=== PATIENT | male | born 1995 | race Caucasian/White ===

== ENCOUNTER 2017-07-21 07:52 | Outpatient (CLI) | payer OTHER ==
--- NOTE | 2017-07-21 10:06 | CT ---
CT ABDOMEN AND PELVIS WITH ORAL AND IV CONTRAST: Date: 07/21/17 HISTORY: Epigastric pain, nausea, and constipation. FINDINGS: The lung bases are clear. The liver, spleen, pancreas, adrenal glands, and kidneys are normal. No emmett cified gallstones are seen. No free air, free fluid, or lymphadenopathy identified in the abdomen or pelvis. The small bowel loops are not abnormally dilated. A normal appearing appendix is present. There is a large amount of fecal material in the colon and rectum. No acute osseous abnormalities are seen. The abdominal aorta is of normal caliber. IMPRESSION: Constipation. POS: [facility]
[2017-07-21] MEDS ORDERED: Iopamidol 370 76% 100 ML VIAL ONE (14:26)
== END 2017-07-21 07:53 | disposition home or self-care (01) ==
LOC: CT 07:52
PROVIDERS: ATTEND Internal Medicine Gastroenterology
DX: R10.13 Epigastric pain (principal); K59.00 Constipation, unspecified
CPT/HCPCS: 74177